=== PATIENT | male | born 1955 | race Caucasian/White ===

== ENCOUNTER → 2023-07-20 12:39 | Outpatient (CLI) | payer MEDICARE, SELFPAY ==
--- NOTE | 2023-07-20 12:40 | DI.CT.S_ITS ---
PROCEDURE: CT CHEST HIGH RESOLUTION INDICATIONS: H/o ILD, chronic lung disease and cough, evaluate for bronch TECHNIQUE: Noncontrast 1.0 and 5.0 mm thick contiguous axial sections from the pulmonary apex to the posterior costophrenic angles, with 7 mm thick coronal and sagittal MIP reformats. 1 mm thick dynamic expiratory images acquired through the upper, mid, and lower lungs. 1.0 mm thick axial sections acquired from the bia to the posterior costophrenic angles in the prone end-inspiration position. For radiation dose reduction, the following was used: automated exposure control, adjustment of mA and/or kV according to patient size. COMPARISON: [facility], CT, CT CHEST WITHOUT CONTRAST, 05/26/2023, 17:03. FINDINGS: Image quality: Diagnostic. Lower Neck: No enlarged lymph nodes. Thyroid: No thyroid nodules which require sonographic follow up, per consensus guidelines. Axillae: No enlarged lymph nodes. Chest Wall: Unremarkable. Bones: Unremarkable. Lungs and Pleura: Similar dependent right upper lobe tree-in-bud nodules, centrilobular nodules, bronchiectasis and bronchial thickening. Similar consolidation of the right lower lobe, with associated filling of the airways, distal bronchiectasis. Resolved right upper lobe part solid nodule. Similar rounded atelectasis in the left lower lobe. Heart: Heart size is mildly enlarged. No pericardial effusion. Moderate LAD calcifications for age. Thoracic Vessels: The aorta and pulmonary arteries demonstrate normal size. Mediastinum and Yun: No enlarged lymph nodes. Esophagus: No wall thickening. No hiatal hernia. Upper Abdomen: Visualized upper abdomen solid organs and bowel loops appear normal. IMPRESSION: Similar consolidation with associated filling of the airways and distal bronchiectasis in the right lower lobe. Consider endoscopic evaluation, as the differential includes malignancy, but is not limited to ABPA or chronic aspiration pneumonia. Stable dependent right upper lobe tree-in-bud and centrilobular nodules, concerning for aspiration or chronic airways disease. Dictated by: Sj Salazar M.D. on 07/20/2023 at 13:44 Approved by: Sj Salazar M.D. on 07/20/2023 at 14:15
== END ==
PROVIDERS: Referring Provider Internal Medicine Critical Care Medicine; Visit Provider Internal Medicine Critical Care Medicine
DX: J18.9 Pneumonia, unspecified organism (principal); R91.8 Other nonspecific abnormal finding of lung field
CPT/HCPCS: 71250

== ENCOUNTER → 2023-10-30 10:54 | Outpatient (CLI) | payer MEDICARE, SELFPAY | PROVIDERS: Referring Provider Internal Medicine Critical Care Medicine; Visit Provider Internal Medicine Critical Care Medicine | DX: J18.9 Pneumonia, unspecified organism (principal) | CPT/HCPCS: 87070; 87205 ==